=== PATIENT | male | born 1945 | race Two or more races ===

== ENCOUNTER 2016-10-26 18:32 | Inpatient (IN) | payer MEDICARE, OTHER ==
[~2016-10-26] VITALS: Ht 162.6 cm; Wt 78.0 kg
[2016-10-26 18:57] LABS: BASOPHILS % (AUTO) 0.3 % (0.0-2.0); DIFF TOTAL % 100 %; EOSINOPHILS # (AUTO) 0.1 /CMM (0.0-0.7); EOSINOPHILS % (AUTO) 1.1 % (0.0-6.0); HEMATOCRIT 44 % (39-51); HEMOGLOBIN 15.1 g/dL (13.5-17.5); LYMPHOCYTES # (AUTO) 0.9 /CMM (0.8-4.8); LYMPHOCYTES % (AUTO) 11.8 % (20.0-44.0); MEAN CORPUSCULAR HEMOGLOBIN 32 PG (26.0-33.0); MEAN CORPUSCULAR HGB CONC 34 g/dl (31.0-36.0); MEAN CORPUSCULAR VOLUME 92 fL (80-96); MONOCYTES # (AUTO) 0.5 /CMM (0.1-1.30); MONOCYTES % (AUTO) 6.6 % (2.0-12.0); NEUTROPHILS # (AUTO) 6.1 /CMM (1.8-8.9); NEUTROPHILS % (AUTO) 80.2 % (43.0-81.0); PLATELET COUNT (AUTO) 166 /CMM (150-450); WHITE BLOOD COUNT (AUTO) 7.6 K/uL (4.3-11.0)
[2016-10-26] MEDS ORDERED: ASPI81TA2 PO (19:03)
[2016-10-26] MEDS ORDERED: MAG30ORA PO (19:03)
[2016-10-26] MEDS ORDERED: MONT10TA22 PO (19:03)
[2016-10-26] MEDS ORDERED: ATOR40TA PO (19:03)
[2016-10-26] MEDS ORDERED: ACET-868 PO (19:03)
[2016-10-26] MEDS ORDERED: DONE5TAB34 PO (19:03)
[2016-10-26] MEDS ORDERED: QUET25TA PO (19:03)
[2016-10-26] MEDS ORDERED: INSU100V27 SQ (19:03)
[2016-10-26] MEDS ORDERED: MEMA28CA PO (19:03)
[2016-10-26] MEDS ORDERED: APIX5TAB PO (19:03)
[2016-10-26] MEDS ORDERED: BLOO-697 IN (19:03)
[2016-10-26 19:13] LABS: ALANINE AMINOTRANSFERASE 17 U/L (12-78); ANION GAP 12 (5-14); ASPARTATE AMINOTRANSFERASE 11 U/L (15-37); BILIRUBIN,DIRECT 0.1 mg/dL (0.0-0.2); BILIRUBIN,TOTAL 0.3 mg/dL (0.2-1.0); CALCIUM, SERUM 8.7 mg/dL (8.5-10.1); CARBON DIOXIDE 30 mmol/L (21-32); CHLORIDE 101 mmol/L (98-107); CREATININE 1.1 mg/dL (0.6-1.3); GFR 66 mL/min (>60); INDIRECT BILIRUBIN 0.2 mg/dL (0.0-1.1); POTASSIUM 4.1 mmol/L (3.5-5.1); SODIUM SERUM 139 mmol/L (136-145); TOTAL PROTEIN, SERUM 6.6 g/dL (6.4-8.2); UREA NITROGEN, BLOOD 19 mg/dL (7-18)
[2016-10-26 19:15] LABS: ACETAMINOPHEN 0 ug/ml (10-30); GLUCOSE 412 mg/dL (74-106); SALICYLATE 1.4 mg/dL (2.8-20.0)
[2016-10-26] MEDS ORDERED: IV SET PRIMARY 1 EA INFUS.SET MC ONE (20:04)
[2016-10-26] MEDS ORDERED: IV NS 0.9% 500 ML IV ONE (20:04)
[2016-10-26] MEDS ORDERED: INSULIN REGULAR, HUMAN 100 UNIT/ML 10 ML VIAL ONE (20:04)
[2016-10-26] MEDS ORDERED: IV NS 0.9% 500 ML BAG IV ONE (20:30)
[2016-10-26] MEDS ORDERED: INSULIN REGULAR, HUMAN 100 UNIT/ML 10 ML VIAL IV ONE (20:30)
[2016-10-26] MEDS ORDERED: DEXTROSE 50%-WATER 50 ML DISP.SYRIN IV PRN (21:30)
[2016-10-26] MEDS: BLOOD SUGAR DIAGNOSTIC 1 EACH STRIP IN SCH (22:00)
[2016-10-26] MEDS ORDERED: MAGNESIUM HYDROXIDE 30 ML UDC PO PRN (23:30)
[2016-10-26] MEDS ORDERED: MAG HYDROX/AL HYDROX/SIMETH 30 ML UDC PO PRN (23:30)
[2016-10-26] MEDS ORDERED: ACETAMINOPHEN 325 MG TABLET PO PRN (23:30)
[2016-10-27] MEDS ORDERED: DONEPEZIL 5 MG TABLET ONE (00:56)
[2016-10-27] MEDS ORDERED: INSULIN REGULAR, HUMAN 100 UNIT/ML 10 ML VIAL ONE (00:59)
[2016-10-27] MEDS: DONEPEZIL 5 MG TABLET PO SCH ×2 (01:06→21:51)
[2016-10-27] MEDS: *INSULIN REGULAR(HUMULIN R)HUM 100 UNIT/ML VIAL SQ PRN ×2 (01:19→22:39)
[2016-10-27 03:40] VITALS: BP 125/81
[2016-10-27] MEDS: BLOOD SUGAR DIAGNOSTIC 1 EACH STRIP IN SCH ×4 (07:30→22:34)
[2016-10-27 08:00] VITALS: BP 145/76
[2016-10-27] MEDS: ASPIRIN 81 MG TAB.CHEW PO SCH (08:56)
[2016-10-27] MEDS: ATORVASTATIN 40 MG TABLET PO SCH (08:56)
[2016-10-27] MEDS: MONTELUKAST SODIUM (10MG) 10 MG TABLET PO SCH (08:56)
[2016-10-27] MEDS: LORAZEPAM 0.5 MG TABLET PO PRN (08:59)
[2016-10-27] MEDS: APIXABAN 5 MG TABLET PO SCH ×2 (09:00→17:09)
[2016-10-27] MEDS ORDERED: Z GUARD REMEDY 2 OZ OINT TP PRN (09:00)
[2016-10-27] MEDS: Z GUARD REMEDY 2 OZ OINT TP SCH (09:00)
[2016-10-27] MEDS: INSULIN ASPART NOVOLOG 100 UNIT/ML CARTRIDGE SQ SCH ×3 (09:03→17:28)
[2016-10-27] MEDS: INSULIN REGULAR, HUMAN 100 UNIT/ML 3 ML VIAL SQ PRN (12:00)
[2016-10-27 12:55] LABS: BASOPHILS % (AUTO) 0.2 % (0.0-2.0); DIFF TOTAL % 100 %; EOSINOPHILS % (AUTO) 0.2 % (0.0-6.0); HEMATOCRIT 41 % (39-51); HEMOGLOBIN 14.3 g/dL (13.5-17.5); LYMPHOCYTES # (AUTO) 0.7 /CMM (0.8-4.8); LYMPHOCYTES % (AUTO) 9.7 % (20.0-44.0); MEAN CORPUSCULAR HEMOGLOBIN 32 PG (26.0-33.0); MEAN CORPUSCULAR HGB CONC 35 g/dl (31.0-36.0); MEAN CORPUSCULAR VOLUME 91 fL (80-96); MONOCYTES # (AUTO) 0.5 /CMM (0.1-1.30); MONOCYTES % (AUTO) 6.4 % (2.0-12.0); NEUTROPHILS % (AUTO) 83.5 % (43.0-81.0); PLATELET COUNT (AUTO) 159 /CMM (150-450); RED BLOOD CELL COUNT(AUTO) 4.49 MIL/uL (4.5-6.0); WHITE BLOOD COUNT (AUTO) 7.2 K/uL (4.3-11.0)
[2016-10-27 12:56] LABS: ALBUMIN 3.1 g/dL (3.4-5.0); BILIRUBIN,TOTAL 0.5 mg/dL (0.2-1.0); CALCIUM, SERUM 8.8 mg/dL (8.5-10.1); PHOSPHORUS 3.6 mg/dL (2.5-4.9); POTASSIUM 4.7 mmol/L (3.5-5.1); TOTAL PROTEIN, SERUM 6.6 g/dL (6.4-8.2)
[2016-10-27] MEDS: NICOTINE PATCH (7MG) 7 MG PATCH.TD24 TD SCH (14:02)
[2016-10-27 16:00] VITALS: BP 129/59
[2016-10-27] MEDS: DIVALPROEX SODIUM 250 MG TABLET.DR PO SCH (17:08)
[2016-10-27 20:00] VITALS: BP 145/92
[2016-10-27] MEDS: QUETIAPINE FUMARATE 25 MG TABLET PO SCH (21:52)
[2016-10-27] MEDS ORDERED: TEMAZEPAM 7.5 MG CAPSULE PO PRN (22:00)
[2016-10-28] MEDS: *INSULIN REGULAR(HUMULIN R)HUM 100 UNIT/ML VIAL SQ PRN ×2 (00:28→21:15)
[2016-10-28] MEDS ORDERED: MISCELLANEOUS MED 1 EA EA XX ONE (00:30)
[2016-10-28] MEDS: BLOOD SUGAR DIAGNOSTIC 1 EACH STRIP IN SCH ×4 (07:35→21:43)
[2016-10-28] MEDS: INSULIN REGULAR, HUMAN 100 UNIT/ML 3 ML VIAL SQ PRN ×2 (07:38→11:43)
[2016-10-28] MEDS: INSULIN ASPART NOVOLOG 100 UNIT/ML CARTRIDGE SQ SCH ×3 (07:39→17:03)
[2016-10-28 08:00] VITALS: BP 137/85
[2016-10-28] MEDS: ASPIRIN 81 MG TAB.CHEW PO SCH (08:28)
[2016-10-28] MEDS: APIXABAN 5 MG TABLET PO SCH ×2 (08:28→16:21)
[2016-10-28] MEDS: NICOTINE PATCH (7MG) 7 MG PATCH.TD24 TD SCH (08:28)
[2016-10-28] MEDS: MONTELUKAST SODIUM (10MG) 10 MG TABLET PO SCH (08:28)
[2016-10-28] MEDS: QUETIAPINE FUMARATE 25 MG TABLET PO SCH ×2 (08:28→21:22)
[2016-10-28] MEDS: ATORVASTATIN 40 MG TABLET PO SCH (08:28)
[2016-10-28] MEDS: DIVALPROEX SODIUM 250 MG TABLET.DR PO SCH ×2 (08:28→16:20)
[2016-10-28] MEDS: Z GUARD REMEDY 2 OZ OINT TP SCH (08:29)
[2016-10-28] MEDS: LORAZEPAM 0.5 MG TABLET PO PRN ×2 (16:20→21:23)
[2016-10-28] MEDS: ACETAMINOPHEN 325 MG TABLET PO PRN ×2 (16:20→23:10)
[2016-10-28 20:00] VITALS: BP 137/79
[2016-10-28] MEDS: INSULIN DETEMIR 100 UNIT/ML CARTRIDGE SQ SCH (21:18)
[2016-10-28] MEDS: DONEPEZIL 5 MG TABLET PO SCH (21:21)
[2016-10-28] MEDS ORDERED: INSULIN REGULAR, HUMAN 100 UNIT/ML 10 ML VIAL SQ ONE (21:30)
[2016-10-28 21:37] LABS: BASOPHILS % (AUTO) 0.3 % (0.0-2.0); DIFF TOTAL % 100 %; EOSINOPHILS # (AUTO) 0.1 /CMM (0.0-0.7); EOSINOPHILS % (AUTO) 1.7 % (0.0-6.0); HEMATOCRIT 42 % (39-51); LYMPHOCYTES # (AUTO) 0.9 /CMM (0.8-4.8); LYMPHOCYTES % (AUTO) 14.7 % (20.0-44.0); MEAN CORPUSCULAR HEMOGLOBIN 31 PG (26.0-33.0); MEAN CORPUSCULAR HGB CONC 34 g/dl (31.0-36.0); MEAN CORPUSCULAR VOLUME 93 fL (80-96); MONOCYTES # (AUTO) 0.5 /CMM (0.1-1.30); NEUTROPHILS # (AUTO) 4.9 /CMM (1.8-8.9); NEUTROPHILS % (AUTO) 76.3 % (43.0-81.0); PLATELET COUNT (AUTO) 201 /CMM (150-450); RED BLOOD CELL COUNT(AUTO) 4.47 MIL/uL (4.5-6.0); WHITE BLOOD COUNT (AUTO) 6.4 K/uL (4.3-11.0)
[2016-10-28 21:51] LABS: CALCIUM, SERUM 8.7 mg/dL (8.5-10.1); CREATININE 1.1 mg/dL (0.6-1.3); PHOSPHORUS 4.1 mg/dL (2.5-4.9); POTASSIUM 5.1 mmol/L (3.5-5.1)
[2016-10-28] MEDS ORDERED: INSULIN DETEMIR 100 UNIT/ML CARTRIDGE SQ SCH (22:00)
[2016-10-29] MEDS ORDERED: MAGNESIUM OXIDE 400 MG TABLET ONE (01:08)
[2016-10-29] MEDS ORDERED: INSULIN REGULAR, HUMAN 100 UNIT/ML 10 ML VIAL SQ ONE (01:30)
[2016-10-29] MEDS ORDERED: MAGNESIUM OXIDE 400 MG TABLET PO ONE (01:30)
[2016-10-29] MEDS: INSULIN ASPART NOVOLOG 100 UNIT/ML CARTRIDGE SQ SCH ×3 (07:30→17:22)
[2016-10-29] MEDS: BLOOD SUGAR DIAGNOSTIC 1 EACH STRIP IN SCH ×4 (07:30→21:55)
[2016-10-29] MEDS: NICOTINE PATCH (7MG) 7 MG PATCH.TD24 TD SCH (09:00)
[2016-10-29] MEDS: APIXABAN 5 MG TABLET PO SCH ×2 (09:00→17:12)
[2016-10-29] MEDS: MONTELUKAST SODIUM (10MG) 10 MG TABLET PO SCH (09:00)
[2016-10-29] MEDS: ASPIRIN 81 MG TAB.CHEW PO SCH (09:00)
[2016-10-29] MEDS: ATORVASTATIN 40 MG TABLET PO SCH (09:00)
[2016-10-29] MEDS: MAGNESIUM OXIDE 400 MG TABLET PO SCH ×2 (09:00→17:13)
[2016-10-29] MEDS: QUETIAPINE FUMARATE 25 MG TABLET PO SCH ×2 (09:00→21:55)
[2016-10-29] MEDS: Z GUARD REMEDY 2 OZ OINT TP SCH (09:00)
[2016-10-29] MEDS: DIVALPROEX SODIUM 250 MG TABLET.DR PO SCH ×2 (09:00→17:12)
[2016-10-29 16:00] VITALS: BP 142/70
[2016-10-29 19:56] VITALS: BP 142/91
[2016-10-29] MEDS: ACETAMINOPHEN 325 MG TABLET PO PRN (20:04)
[2016-10-29] MEDS: INSULIN REGULAR, HUMAN 100 UNIT/ML 3 ML VIAL SQ PRN (21:40)
[2016-10-29] MEDS: INSULIN DETEMIR 100 UNIT/ML CARTRIDGE SQ SCH (21:42)
[2016-10-29] MEDS: DONEPEZIL 5 MG TABLET PO SCH (21:55)
[2016-10-30 08:00] VITALS: BP 131/73
[2016-10-30] MEDS: BLOOD SUGAR DIAGNOSTIC 1 EACH STRIP IN SCH ×4 (08:33→21:22)
[2016-10-30] MEDS: MAGNESIUM OXIDE 400 MG TABLET PO SCH ×2 (08:34→17:00)
[2016-10-30] MEDS: ATORVASTATIN 40 MG TABLET PO SCH (08:34)
[2016-10-30] MEDS: MONTELUKAST SODIUM (10MG) 10 MG TABLET PO SCH (08:34)
[2016-10-30] MEDS: APIXABAN 5 MG TABLET PO SCH ×2 (08:34→17:00)
[2016-10-30] MEDS: ASPIRIN 81 MG TAB.CHEW PO SCH (08:34)
[2016-10-30] MEDS: QUETIAPINE FUMARATE 25 MG TABLET PO SCH ×2 (08:34→20:32)
[2016-10-30] MEDS: DIVALPROEX SODIUM 250 MG TABLET.DR PO SCH ×2 (08:34→17:00)
[2016-10-30] MEDS: NICOTINE PATCH (7MG) 7 MG PATCH.TD24 TD SCH (08:35)
[2016-10-30] MEDS: INSULIN ASPART NOVOLOG 100 UNIT/ML CARTRIDGE SQ SCH ×3 (08:40→17:19)
[2016-10-30] MEDS: INSULIN REGULAR, HUMAN 100 UNIT/ML 3 ML VIAL SQ PRN (08:40)
[2016-10-30] MEDS: Z GUARD REMEDY 2 OZ OINT TP SCH (09:00)
[2016-10-30] MEDS: NEOMY SULF/BACITRAC ZN/POLY 15 GM TUBE TP SCH (10:32)
[2016-10-30 16:00] VITALS: BP 128/78
[2016-10-30 20:24] VITALS: BP 137/82
[2016-10-30] MEDS: ACETAMINOPHEN 325 MG TABLET PO PRN (20:32)
[2016-10-30] MEDS: DONEPEZIL 5 MG TABLET PO SCH (21:22)
[2016-10-30] MEDS: INSULIN DETEMIR 100 UNIT/ML CARTRIDGE SQ SCH (21:22)
[2016-10-31] MEDS: BLOOD SUGAR DIAGNOSTIC 1 EACH STRIP IN SCH (07:30)
[2016-10-31 08:00] VITALS: BP 138/69
[2016-10-31] MEDS: NICOTINE PATCH (7MG) 7 MG PATCH.TD24 TD SCH (08:46)
[2016-10-31] MEDS: ASPIRIN 81 MG TAB.CHEW PO SCH (08:46)
[2016-10-31] MEDS: MAGNESIUM OXIDE 400 MG TABLET PO SCH (08:46)
[2016-10-31] MEDS: DIVALPROEX SODIUM 250 MG TABLET.DR PO SCH (08:47)
[2016-10-31] MEDS: QUETIAPINE FUMARATE 25 MG TABLET PO SCH (08:47)
[2016-10-31] MEDS: ATORVASTATIN 40 MG TABLET PO SCH (08:47)
[2016-10-31] MEDS: MONTELUKAST SODIUM (10MG) 10 MG TABLET PO SCH (08:47)
[2016-10-31] MEDS: APIXABAN 5 MG TABLET PO SCH (08:48)
[2016-10-31] MEDS: INSULIN REGULAR, HUMAN 100 UNIT/ML 3 ML VIAL SQ PRN (09:14)
[2016-10-31] MEDS: INSULIN ASPART NOVOLOG 100 UNIT/ML CARTRIDGE SQ SCH (09:16)
[2016-10-31 10:12] LABS: CALCIUM, SERUM 9.4 mg/dL (8.5-10.1); CREATININE 1.1 mg/dL (0.6-1.3); POTASSIUM 4.3 mmol/L (3.5-5.1)
[2016-10-31] MEDS: NEOMY SULF/BACITRAC ZN/POLY 15 GM TUBE TP SCH (10:33)
[2016-10-31] MEDS: Z GUARD REMEDY 2 OZ OINT TP SCH (10:36)
[2016-10-31] MEDS ORDERED: INSULIN REGULAR, HUMAN 100 UNIT/ML 3 ML VIAL IV ONE (11:00)
[2016-10-31] MEDS ORDERED: IV NS 0.9% 1,000 ML BAG IV PRN (11:00)
[2016-10-31] MEDS: LORAZEPAM 0.5 MG TABLET PO PRN (11:14)
== END 2016-10-31 11:45 | disposition short-term general hospital (02) | DRG 885 ==
LOC: ER 18:34 → GPS 21:01
PROVIDERS: ADMIT Psychiatry & Neurology Psychiatry; ATTEND Nurse Practitioner Acute Care
DX: F29 Unspecified psychosis not due to a substance or known physiological condition (principal); F10.231 Alcohol dependence with withdrawal delirium; F03.91 Unspecified dementia, unspecified severity, with behavioral disturbance; I50.32 Chronic diastolic (congestive) heart failure; Z95.5 Presence of coronary angioplasty implant and graft; I25.10 Atherosclerotic heart disease of native coronary artery without angina pectoris; I10 Essential (primary) hypertension; E78.5 Hyperlipidemia, unspecified; Z86.718 Personal history of other venous thrombosis and embolism; F32.9 Major depressive disorder, single episode, unspecified; F41.9 Anxiety disorder, unspecified; G89.29 Other chronic pain
CPT/HCPCS: 36415; 80048-TC; 80053-TC; 80061-TC; 80076-TC; 82962-TC; 83735-TC; 84100-TC; 85025-TC; 87081-TC; A4606; G0480; G6039-TC; J1815; J7040; Z7610

== ENCOUNTER 2016-10-31 11:55 | Inpatient (IN) | payer MEDICARE, OTHER ==
[2016-10-31] VITALS (10 sets, daily range): BP systolic 46–158; BP diastolic 16–109
[~2016-10-31] VITALS: Ht 162.6 cm; Wt 78.0 kg
[~2016-10-31 11:55] MED LIST: ACET-868 PO; APIX5TAB PO; ASPI81TA2 PO; ATOR40TA PO; BLOO-697 IN; DONE5TAB34 PO; INSU100V27 SQ; MAG30ORA PO; MEMA28CA PO; MONT10TA22 PO
[2016-10-31] MEDS ORDERED: IV NS 0.9% 1,000 ML ONE (12:05)
[2016-10-31] MEDS ORDERED: IV SET PRIMARY PUMP SET 1 EA INFUS.SET MC ONE (12:05)
[2016-10-31] MEDS ORDERED: MAGNESIUM HYDROXIDE 30 ML UDC PO PRN (12:30)
[2016-10-31] MEDS ORDERED: INSULIN REGULAR, HUMAN 100 UNIT in IV NS 0.9% 99 ML IV PRN ×2 (12:30)
[2016-10-31] MEDS ORDERED: ACETAMINOPHEN 325 MG TABLET PO PRN ×2 (12:30→14:00)
[2016-10-31] MEDS ORDERED: MAG HYDROX/AL HYDROX/SIMETH 30 ML UDC PO PRN ×2 (12:30→14:00)
[2016-10-31] MEDS ORDERED: ONDANSETRON HCL/PF 4 MG/2 ML VIAL IVP PRN (12:30)
[2016-10-31] MEDS ORDERED: INSULIN REGULAR, HUMAN 100 UNIT/ML 3 ML VIAL IV ONE (12:30)
[2016-10-31] MEDS ORDERED: IV NS 0.9% 1,000 ML IV PRN (12:30)
[2016-10-31 13:08] LABS: CALCIUM, SERUM 9.2 mg/dL (8.5-10.1); CREATININE 1.1 mg/dL (0.6-1.3); POTASSIUM 3.9 mmol/L (3.5-5.1)
[2016-10-31] MEDS ORDERED: *INSULIN REGULAR(HUMULIN R)HUM 100 UNIT/ML VIAL SQ PRN (14:00)
[2016-10-31] MEDS ORDERED: DEXTROSE 50%-WATER 50 ML DISP.SYRIN IV PRN (14:00)
[2016-10-31] MEDS: DIVALPROEX SODIUM 250 MG TABLET.DR PO SCH ×2 (15:00→21:42)
[2016-10-31] MEDS: QUETIAPINE FUMARATE 25 MG TABLET PO SCH ×2 (15:00→16:36)
[2016-10-31] MEDS: BLOOD SUGAR DIAGNOSTIC 1 EACH STRIP IN SCH ×2 (16:34→21:43)
[2016-10-31] MEDS: MEMANTINE HCL 5 MG TABLET PO SCH (16:36)
[2016-10-31] MEDS: INSULIN REGULAR, HUMAN 100 UNIT/ML 3 ML VIAL SQ PRN (16:37)
[2016-10-31] MEDS: APIXABAN 5 MG TABLET PO SCH (16:37)
[2016-10-31] MEDS: HYDROCODONE/APAP 5/325MG 1 EACH TABLET PO PRN (19:03)
[2016-10-31] MEDS ORDERED: DONEPEZIL 5 MG TABLET PO SCH (22:00)
[2016-10-31] MEDS ORDERED: INSULIN DETEMIR 100 UNIT/ML CARTRIDGE SQ SCH (22:00)
[2016-10-31] MEDS ORDERED: ZOLPIDEM TARTRATE 5 MG TABLET PO PRN (22:00)
[2016-11-01] MEDS: INSULIN REGULAR, HUMAN 100 UNIT/ML 3 ML VIAL SQ PRN ×2 (05:45→11:52)
[2016-11-01] MEDS: BLOOD SUGAR DIAGNOSTIC 1 EACH STRIP IN SCH ×3 (05:45→16:48)
[2016-11-01 07:21] LABS: BASOPHILS % (AUTO) 0.6 % (0.0-2.0); DIFF TOTAL % 100 %; EOSINOPHILS # (AUTO) 0.2 /CMM (0.0-0.7); EOSINOPHILS % (AUTO) 2.9 % (0.0-6.0); HEMATOCRIT 41 % (39-51); HEMOGLOBIN 14.3 g/dL (13.5-17.5); LYMPHOCYTES # (AUTO) 1.2 /CMM (0.8-4.8); LYMPHOCYTES % (AUTO) 21.9 % (20.0-44.0); MEAN CORPUSCULAR HEMOGLOBIN 32 PG (26.0-33.0); MEAN CORPUSCULAR HGB CONC 35 g/dl (31.0-36.0); MEAN CORPUSCULAR VOLUME 92 fL (80-96); MONOCYTES # (AUTO) 0.6 /CMM (0.1-1.30); MONOCYTES % (AUTO) 10.9 % (2.0-12.0); NEUTROPHILS # (AUTO) 3.6 /CMM (1.8-8.9); NEUTROPHILS % (AUTO) 63.7 % (43.0-81.0); PLATELET COUNT (AUTO) 212 /CMM (150-450); RED BLOOD CELL COUNT(AUTO) 4.51 MIL/uL (4.5-6.0); WHITE BLOOD COUNT (AUTO) 5.6 K/uL (4.3-11.0)
[2016-11-01] MEDS ORDERED: PANTOPRAZOLE 40 MG TABLET.DR PO SCH (07:30)
[2016-11-01 07:49] LABS: CALCIUM, SERUM 8.9 mg/dL (8.5-10.1); CREATININE 0.7 mg/dL (0.6-1.3); PHOSPHORUS 3.5 mg/dL (2.5-4.9); POTASSIUM 3.9 mmol/L (3.5-5.1)
[2016-11-01 08:00] VITALS: BP 127/75
[2016-11-01] MEDS: DIVALPROEX SODIUM 250 MG TABLET.DR PO SCH (08:08)
[2016-11-01] MEDS: QUETIAPINE FUMARATE 25 MG TABLET PO SCH ×2 (08:08→16:48)
[2016-11-01] MEDS: MEMANTINE HCL 5 MG TABLET PO SCH ×2 (08:09→16:48)
[2016-11-01] MEDS: APIXABAN 5 MG TABLET PO SCH ×2 (08:37→16:48)
[2016-11-01] MEDS ORDERED: ATORVASTATIN 40 MG TABLET PO SCH (09:00)
[2016-11-01] MEDS ORDERED: MONTELUKAST SODIUM (10MG) 10 MG TABLET PO SCH (09:00)
[2016-11-01] MEDS ORDERED: ASPIRIN 81 MG TAB.CHEW PO SCH (09:00)
[2016-11-01] MEDS: HYDROCODONE/APAP 5/325MG 1 EACH TABLET PO PRN (13:58)
[2016-11-01 16:00] VITALS: BP 137/82
[2016-11-02] MEDS ORDERED: INSU100V10 SQ (07:29)
== END 2016-11-01 18:00 | DRG 637 ==
LOC: ICU 11:55 → MEDSG2 18:33
PROVIDERS: ADMIT Internal Medicine; ATTEND Internal Medicine
DX: E13.10 Other specified diabetes mellitus with ketoacidosis without coma (principal); G93.41 Metabolic encephalopathy; F03.91 Unspecified dementia, unspecified severity, with behavioral disturbance; I50.32 Chronic diastolic (congestive) heart failure; Z91.14 Patient's other noncompliance with medication regimen; E78.5 Hyperlipidemia, unspecified; Z86.718 Personal history of other venous thrombosis and embolism; I25.10 Atherosclerotic heart disease of native coronary artery without angina pectoris; F29 Unspecified psychosis not due to a substance or known physiological condition; Z98.61 Coronary angioplasty status; I11.0 Hypertensive heart disease with heart failure
CPT/HCPCS: 36415; 80048-TC; 82962-TC; 83735-TC; 84100-TC; 85025-TC; J1815; J7030

== ENCOUNTER 2016-11-01 18:46 | Inpatient (IN) | payer MEDICARE, OTHER ==
[~2016-11-01] VITALS: Ht 165.1 cm; Wt 83.9 kg
[2016-11-01 20:29] VITALS: BP 143/86
[2016-11-01] MEDS ORDERED: MAGNESIUM HYDROXIDE 30 ML UDC PO PRN (20:30)
[2016-11-01] MEDS ORDERED: MAG HYDROX/AL HYDROX/SIMETH 30 ML UDC PO PRN (20:30)
[2016-11-01] MEDS ORDERED: LORAZEPAM 0.5 MG TABLET PO PRN (20:30)
[2016-11-01] MEDS ORDERED: INSULIN REGULAR, HUMAN 100 UNIT/ML 3 ML VIAL SQ PRN (21:30)
[2016-11-01] MEDS ORDERED: DEXTROSE 50%-WATER 50 ML DISP.SYRIN IV PRN (21:30)
[2016-11-01] MEDS ORDERED: BLOOD SUGAR DIAGNOSTIC 1 EACH STRIP IN SCH (22:00)
[2016-11-01] MEDS: DONEPEZIL 5 MG TABLET PO SCH (22:28)
[2016-11-01] MEDS: TEMAZEPAM 7.5 MG CAPSULE PO PRN (22:28)
[2016-11-02] MEDS ORDERED: INSU100V10 SQ (07:29)
[2016-11-02] MEDS ORDERED: DEXTROSE 50%-WATER 50 ML DISP.SYRIN IV PRN ×3 (07:30→11:00)
[2016-11-02] MEDS ORDERED: BLOOD SUGAR DIAGNOSTIC 1 EACH STRIP IN SCH ×2 (07:30→12:00)
[2016-11-02] MEDS ORDERED: *INSULIN REGULAR(HUMULIN R)HUM 100 UNIT/ML VIAL SQ PRN ×2 (07:30→11:00)
[2016-11-02] MEDS ORDERED: INSULIN REGULAR, HUMAN 100 UNIT/ML 3 ML VIAL SQ PRN ×2 (07:30→11:00)
[2016-11-02 07:47] LABS: BASOPHILS % (AUTO) 0.6 % (0.0-2.0); DIFF TOTAL % 100 %; EOSINOPHILS # (AUTO) 0.1 /CMM (0.0-0.7); EOSINOPHILS % (AUTO) 2.4 % (0.0-6.0); HEMATOCRIT 41 % (39-51); HEMOGLOBIN 14.1 g/dL (13.5-17.5); LYMPHOCYTES % (AUTO) 19.2 % (20.0-44.0); MEAN CORPUSCULAR HEMOGLOBIN 32 PG (26.0-33.0); MEAN CORPUSCULAR HGB CONC 35 g/dl (31.0-36.0); MEAN CORPUSCULAR VOLUME 91 fL (80-96); MONOCYTES # (AUTO) 0.6 /CMM (0.1-1.30); MONOCYTES % (AUTO) 10.9 % (2.0-12.0); NEUTROPHILS # (AUTO) 3.6 /CMM (1.8-8.9); NEUTROPHILS % (AUTO) 66.9 % (43.0-81.0); PLATELET COUNT (AUTO) 213 /CMM (150-450); RED BLOOD CELL COUNT(AUTO) 4.46 MIL/uL (4.5-6.0); WHITE BLOOD COUNT (AUTO) 5.4 K/uL (4.3-11.0)
[2016-11-02 08:00] VITALS: BP 132/76
[2016-11-02 08:10] LABS: CALCIUM, SERUM 8.6 mg/dL (8.5-10.1); CREATININE 0.8 mg/dL (0.6-1.3)
[2016-11-02] MEDS: DONEPEZIL 5 MG TABLET PO SCH ×2 (08:19→21:37)
[2016-11-02] MEDS: ATORVASTATIN 40 MG TABLET PO SCH (09:00)
[2016-11-02] MEDS: ASPIRIN 81 MG TAB.CHEW PO SCH (09:00)
[2016-11-02] MEDS: MONTELUKAST SODIUM (10MG) 10 MG TABLET PO SCH (09:00)
[2016-11-02] MEDS: APIXABAN 5 MG TABLET PO SCH ×2 (09:00→16:47)
[2016-11-02] MEDS: MEMANTINE HCL 5 MG TABLET PO SCH ×2 (09:00→16:47)
[2016-11-02] MEDS: ACETAMINOPHEN 325 MG TABLET PO PRN (11:52)
[2016-11-02] MEDS: BLOOD SUGAR DIAGNOSTIC 1 EACH STRIP IN SCH ×2 (11:59→17:39)
[2016-11-02] MEDS: INSULIN REGULAR, HUMAN 100 UNIT/ML 3 ML VIAL SQ PRN ×3 (12:32→21:40)
[2016-11-02] MEDS ORDERED: QUETIAPINE FUMARATE 25 MG TABLET PO SCH (14:30)
[2016-11-02] MEDS ORDERED: DIVALPROEX SODIUM 250 MG TABLET.DR PO SCH (14:30)
[2016-11-02 16:00] VITALS: BP 112/68
[2016-11-02] MEDS: DIVALPROEX SODIUM 250 MG TABLET.DR PO SCH (16:47)
[2016-11-02] MEDS: QUETIAPINE FUMARATE 25 MG TABLET PO SCH (16:48)
[2016-11-02 20:00] VITALS: BP 124/69
[2016-11-02] MEDS: ZINC OXIDE 30 GM TUBE TP SCH (21:36)
[2016-11-02] MEDS: INSULIN DETEMIR 100 UNIT/ML CARTRIDGE SQ SCH (21:39)
[2016-11-03] MEDS: BLOOD SUGAR DIAGNOSTIC 1 EACH STRIP IN SCH ×5 (01:22→23:27)
[2016-11-03] MEDS: ACETAMINOPHEN 325 MG TABLET PO PRN ×3 (06:02→23:18)
[2016-11-03 08:00] VITALS: BP 118/67
[2016-11-03] MEDS: DIVALPROEX SODIUM 250 MG TABLET.DR PO SCH ×3 (08:40→17:21)
[2016-11-03] MEDS: QUETIAPINE FUMARATE 25 MG TABLET PO SCH ×2 (08:40→17:21)
[2016-11-03] MEDS: MONTELUKAST SODIUM (10MG) 10 MG TABLET PO SCH (08:41)
[2016-11-03] MEDS: ATORVASTATIN 40 MG TABLET PO SCH (08:41)
[2016-11-03] MEDS: ASPIRIN 81 MG TAB.CHEW PO SCH (08:41)
[2016-11-03] MEDS: MEMANTINE HCL 5 MG TABLET PO SCH ×2 (08:41→17:21)
[2016-11-03] MEDS: APIXABAN 5 MG TABLET PO SCH ×2 (08:42→17:22)
[2016-11-03] MEDS: ZINC OXIDE 30 GM TUBE TP SCH ×2 (08:53→20:09)
[2016-11-03] MEDS: INSULIN REGULAR, HUMAN 100 UNIT/ML 3 ML VIAL SQ PRN ×2 (12:03→23:30)
[2016-11-03 16:00] VITALS: BP 146/69
[2016-11-03 20:00] VITALS: BP 127/62
[2016-11-03] MEDS: DONEPEZIL 5 MG TABLET PO SCH (21:04)
[2016-11-03] MEDS: INSULIN DETEMIR 100 UNIT/ML CARTRIDGE SQ SCH (21:56)
[2016-11-03] MEDS: TEMAZEPAM 7.5 MG CAPSULE PO PRN (21:58)
[2016-11-04] MEDS: BLOOD SUGAR DIAGNOSTIC 1 EACH STRIP IN SCH ×4 (06:09→23:30)
[2016-11-04 08:00] VITALS: BP 164/77
[2016-11-04] MEDS: DIVALPROEX SODIUM 250 MG TABLET.DR PO SCH ×2 (08:59→17:03)
[2016-11-04] MEDS: QUETIAPINE FUMARATE 25 MG TABLET PO SCH ×2 (08:59→17:03)
[2016-11-04] MEDS: ATORVASTATIN 40 MG TABLET PO SCH (09:00)
[2016-11-04] MEDS: MEMANTINE HCL 5 MG TABLET PO SCH ×2 (09:00→17:03)
[2016-11-04] MEDS: MONTELUKAST SODIUM (10MG) 10 MG TABLET PO SCH (09:00)
[2016-11-04] MEDS: ASPIRIN 81 MG TAB.CHEW PO SCH (09:01)
[2016-11-04] MEDS: ZINC OXIDE 30 GM TUBE TP SCH ×2 (09:01→20:42)
[2016-11-04] MEDS: APIXABAN 5 MG TABLET PO SCH ×2 (09:10→17:04)
[2016-11-04] MEDS: INSULIN REGULAR, HUMAN 100 UNIT/ML 3 ML VIAL SQ PRN ×3 (12:14→23:33)
[2016-11-04 16:00] VITALS: BP 135/77
[2016-11-04 20:00] VITALS: BP 114/76
[2016-11-04] MEDS: DONEPEZIL 5 MG TABLET PO SCH (21:11)
[2016-11-04] MEDS: INSULIN DETEMIR 100 UNIT/ML CARTRIDGE SQ SCH (21:15)
[2016-11-05] MEDS: BLOOD SUGAR DIAGNOSTIC 1 EACH STRIP IN SCH ×3 (06:16→17:47)
[2016-11-05] MEDS: INSULIN REGULAR, HUMAN 100 UNIT/ML 3 ML VIAL SQ PRN ×3 (06:26→17:59)
[2016-11-05 08:10] VITALS: BP 139/77
[2016-11-05] MEDS: MONTELUKAST SODIUM (10MG) 10 MG TABLET PO SCH (08:33)
[2016-11-05] MEDS: MEMANTINE HCL 5 MG TABLET PO SCH ×2 (08:33→16:40)
[2016-11-05] MEDS: QUETIAPINE FUMARATE 25 MG TABLET PO SCH ×2 (08:33→16:41)
[2016-11-05] MEDS: ASPIRIN 81 MG TAB.CHEW PO SCH (08:34)
[2016-11-05] MEDS: ATORVASTATIN 40 MG TABLET PO SCH (08:34)
[2016-11-05] MEDS: DIVALPROEX SODIUM 250 MG TABLET.DR PO SCH ×2 (08:34→16:40)
[2016-11-05] MEDS: APIXABAN 5 MG TABLET PO SCH ×2 (08:37→16:43)
[2016-11-05] MEDS: ZINC OXIDE 30 GM TUBE TP SCH ×2 (08:38→21:46)
[2016-11-05 15:59] VITALS: BP 127/79
[2016-11-05] MEDS: ACETAMINOPHEN 325 MG TABLET PO PRN (17:53)
[2016-11-05 19:50] VITALS: BP 105/62
[2016-11-05] MEDS: DONEPEZIL 5 MG TABLET PO SCH (21:43)
[2016-11-05] MEDS: INSULIN DETEMIR 100 UNIT/ML CARTRIDGE SQ SCH (21:56)
[2016-11-06] MEDS: BLOOD SUGAR DIAGNOSTIC 1 EACH STRIP IN SCH ×5 (00:24→23:57)
[2016-11-06 08:00] VITALS: BP 132/77
[2016-11-06] MEDS: ASPIRIN 81 MG TAB.CHEW PO SCH (09:00)
[2016-11-06] MEDS: MONTELUKAST SODIUM (10MG) 10 MG TABLET PO SCH (09:00)
[2016-11-06] MEDS: ZINC OXIDE 30 GM TUBE TP SCH ×2 (09:00→21:31)
[2016-11-06] MEDS: QUETIAPINE FUMARATE 25 MG TABLET PO SCH ×2 (09:00→17:00)
[2016-11-06] MEDS: APIXABAN 5 MG TABLET PO SCH ×2 (09:00→17:00)
[2016-11-06] MEDS: ATORVASTATIN 40 MG TABLET PO SCH (09:00)
[2016-11-06] MEDS: MEMANTINE HCL 5 MG TABLET PO SCH ×2 (09:00→17:00)
[2016-11-06] MEDS: DIVALPROEX SODIUM 250 MG TABLET.DR PO SCH ×2 (11:19→17:00)
[2016-11-06] MEDS: INSULIN REGULAR, HUMAN 100 UNIT/ML 3 ML VIAL SQ PRN ×2 (12:26→18:09)
[2016-11-06 16:00] VITALS: BP 115/69
[2016-11-06 19:49] VITALS: BP 118/69
[2016-11-06] MEDS: DONEPEZIL 5 MG TABLET PO SCH (21:31)
[2016-11-06] MEDS: INSULIN DETEMIR 100 UNIT/ML CARTRIDGE SQ SCH (21:37)
[2016-11-07] MEDS: BLOOD SUGAR DIAGNOSTIC 1 EACH STRIP IN SCH (06:21)
[2016-11-07 08:00] VITALS: BP 139/86
[2016-11-07 08:11] LABS: CALCIUM, SERUM 8.4 mg/dL (8.5-10.1); CREATININE 0.7 mg/dL (0.6-1.3); POTASSIUM 3.7 mmol/L (3.5-5.1)
[2016-11-07] MEDS: MEMANTINE HCL 5 MG TABLET PO SCH (08:27)
[2016-11-07] MEDS: QUETIAPINE FUMARATE 25 MG TABLET PO SCH (08:27)
[2016-11-07] MEDS: MONTELUKAST SODIUM (10MG) 10 MG TABLET PO SCH (08:27)
[2016-11-07] MEDS: DIVALPROEX SODIUM 250 MG TABLET.DR PO SCH (08:27)
[2016-11-07] MEDS: ASPIRIN 81 MG TAB.CHEW PO SCH (08:28)
[2016-11-07] MEDS: ATORVASTATIN 40 MG TABLET PO SCH (08:28)
[2016-11-07] MEDS: APIXABAN 5 MG TABLET PO SCH (08:29)
[2016-11-07] MEDS: ZINC OXIDE 30 GM TUBE TP SCH (08:29)
[2016-11-07 08:33] LABS: BASOPHILS % (AUTO) 0.7 % (0.0-2.0); DIFF TOTAL % 100 %; EOSINOPHILS # (AUTO) 0.1 /CMM (0.0-0.7); EOSINOPHILS % (AUTO) 2.9 % (0.0-6.0); HEMATOCRIT 40 % (39-51); HEMOGLOBIN 13.7 g/dL (13.5-17.5); LYMPHOCYTES % (AUTO) 22.7 % (20.0-44.0); MEAN CORPUSCULAR HEMOGLOBIN 32 PG (26.0-33.0); MEAN CORPUSCULAR HGB CONC 34 g/dl (31.0-36.0); MEAN CORPUSCULAR VOLUME 92 fL (80-96); MONOCYTES # (AUTO) 0.5 /CMM (0.1-1.30); MONOCYTES % (AUTO) 10.1 % (2.0-12.0); NEUTROPHILS # (AUTO) 2.9 /CMM (1.8-8.9); NEUTROPHILS % (AUTO) 63.6 % (43.0-81.0); PLATELET COUNT (AUTO) 211 /CMM (150-450); RED BLOOD CELL COUNT(AUTO) 4.36 MIL/uL (4.5-6.0); WHITE BLOOD COUNT (AUTO) 4.5 K/uL (4.3-11.0)
== END 2016-11-07 11:20 | DRG 885 ==
LOC: GPS 18:46
PROVIDERS: ADMIT Psychiatry & Neurology Psychiatry; ATTEND Psychiatry & Neurology Psychiatry
DX: F29 Unspecified psychosis not due to a substance or known physiological condition (principal); I11.0 Hypertensive heart disease with heart failure; E11.65 Type 2 diabetes mellitus with hyperglycemia; G93.40 Encephalopathy, unspecified; I50.32 Chronic diastolic (congestive) heart failure; F39 Unspecified mood [affective] disorder; F03.90 Unspecified dementia, unspecified severity, without behavioral disturbance, psychotic disturbance, mood disturbance, and anxiety; E78.5 Hyperlipidemia, unspecified; Z86.718 Personal history of other venous thrombosis and embolism; I25.10 Atherosclerotic heart disease of native coronary artery without angina pectoris; Z98.61 Coronary angioplasty status; L98.9 Disorder of the skin and subcutaneous tissue, unspecified; L91.0 Hypertrophic scar; R23.4 Changes in skin texture
CPT/HCPCS: 36415; 80048-TC; 80164-TC; 82962-TC; 84484-TC; 85025-TC; J1815

== ENCOUNTER 2016-11-10 19:04 | Emergency (ER) | payer MEDICARE, OTHER ==
[~2016-11-10] VITALS: Ht 167.6 cm; Wt 88.5 kg
[~2016-11-10 19:04] MED LIST changes: -BLOO-697 IN; +INSU100V10 SQ; -INSU100V27 SQ
[2016-11-10 19:40] LABS: BASOPHILS # (AUTO) 0.1 /CMM (0.0-0.2); BASOPHILS % (AUTO) 1.3 % (0.0-2.0); DIFF TOTAL % 100 %; EOSINOPHILS % (AUTO) 0.6 % (0.0-6.0); HEMATOCRIT 43 % (39-51); HEMOGLOBIN 14.3 g/dL (13.5-17.5); LYMPHOCYTES # (AUTO) 0.6 /CMM (0.8-4.8); LYMPHOCYTES % (AUTO) 7.6 % (20.0-44.0); MEAN CORPUSCULAR HEMOGLOBIN 31 PG (26.0-33.0); MEAN CORPUSCULAR HGB CONC 33 g/dl (31.0-36.0); MEAN CORPUSCULAR VOLUME 93 fL (80-96); MONOCYTES # (AUTO) 0.4 /CMM (0.1-1.30); NEUTROPHILS # (AUTO) 6.3 /CMM (1.8-8.9); NEUTROPHILS % (AUTO) 85.5 % (43.0-81.0); PLATELET COUNT (AUTO) 192 /CMM (150-450); RED BLOOD CELL COUNT(AUTO) 4.57 MIL/uL (4.5-6.0); WHITE BLOOD COUNT (AUTO) 7.4 K/uL (4.3-11.0)
[2016-11-10 19:43] LABS: ABG BASE EXCESS 4.2 mmol/L; ABG HCO3 27.4 mmol/L; ABG PCO2 36.4 mmHg (35.0-45.0); ABG PH 7.495 (7.350-7.450); ABG PO2 94.1 mmHg (75.0-100.0); ABG TOTAL HEMOGLOBIN 14.1 G/dL (13.5-18.0); ALLEN TEST Pass; O2Hb 95.4 % (94.0-97.0)
[2016-11-10 19:43] LABS: CALCIUM, SERUM 8.8 mg/dL (8.5-10.1); CREATININE 1.2 mg/dL (0.6-1.3); POTASSIUM 4.4 mmol/L (3.5-5.1)
[2016-11-10] MEDS ORDERED: IV SET PRIMARY 1 EA INFUS.SET MC ONE (20:16)
[2016-11-10] MEDS ORDERED: IV NS 0.9% 1,000 ML ONE (20:16)
[2016-11-10] MEDS ORDERED: INSULIN REGULAR, HUMAN 100 UNIT/ML 10 ML VIAL ONE (20:17)
[2016-11-10] MEDS ORDERED: INSULIN REGULAR, HUMAN 100 UNIT/ML 10 ML VIAL SQ ONE (20:30)
[2016-11-10] MEDS ORDERED: IV NS 0.9% 1,000 ML BAG IV ONE (20:30)
[2016-11-10 22:12] VITALS: BP 142/85
== END 2016-11-10 22:13 | disposition home or self-care (01) ==
LOC: ER 19:06
DX: E11.65 Type 2 diabetes mellitus with hyperglycemia (principal); I11.0 Hypertensive heart disease with heart failure; I50.9 Heart failure, unspecified; F03.90 Unspecified dementia, unspecified severity, without behavioral disturbance, psychotic disturbance, mood disturbance, and anxiety; E78.5 Hyperlipidemia, unspecified; I25.10 Atherosclerotic heart disease of native coronary artery without angina pectoris; I82.409 Acute embolism and thrombosis of unspecified deep veins of unspecified lower extremity; Z79.82 Long term (current) use of aspirin; Z79.4 Long term (current) use of insulin
CPT/HCPCS: 36415; 36600; 80048; 82010; 82962 ×3; 85025; 93005; 96360; 96372; 99285; A4606; J1815; J7030; Z7610

== ENCOUNTER 2016-11-11 00:11 | Inpatient (IN) | payer MEDICARE, OTHER ==
[~2016-11-11] VITALS: Ht 167.6 cm; Wt 88.5 kg
[2016-11-11] MEDS ORDERED: IV NS 0.9% 500 ML IV ONE (00:21)
[2016-11-11] MEDS ORDERED: IV SET PRIMARY 1 EA INFUS.SET MC ONE (00:21)
[2016-11-11] MEDS ORDERED: IV NS 0.9% 1,000 ML BAG IV ONE (00:30)
[2016-11-11] MEDS ORDERED: IV NS 0.9% 1,000 ML IV PRN (00:47)
[2016-11-11] MEDS ORDERED: Z GUARD REMEDY 2 OZ OINT TP PRN (01:00)
[2016-11-11] MEDS ORDERED: MAG HYDROX/AL HYDROX/SIMETH 30 ML UDC PO PRN ×2 (01:00)
[2016-11-11] MEDS ORDERED: MAGNESIUM HYDROXIDE 30 ML UDC PO PRN (01:00)
[2016-11-11] MEDS ORDERED: ZOLPIDEM TARTRATE 5 MG TABLET PO PRN (01:00)
[2016-11-11] MEDS ORDERED: ONDANSETRON HCL/PF 4 MG/2 ML VIAL IVP PRN (01:00)
[2016-11-11] MEDS ORDERED: ACETAMINOPHEN 325 MG TABLET PO PRN ×2 (01:00)
[2016-11-11] MEDS ORDERED: *INSULIN REGULAR(HUMULIN R)HUM 100 UNIT/ML VIAL SQ PRN (01:00)
[2016-11-11] MEDS ORDERED: HYDROCODONE/APAP 5/325MG 1 EACH TABLET PO PRN (01:00)
[2016-11-11] MEDS ORDERED: DEXTROSE 50%-WATER 50 ML DISP.SYRIN IV PRN (01:00)
[2016-11-11] MEDS ORDERED: IV SET PRIMARY PUMP SET 1 EA INFUS.SET MC ONE ×2 (02:11→11:35)
[2016-11-11 04:27] VITALS: BP 147/87
[2016-11-11] MEDS: INSULIN REGULAR, HUMAN 100 UNIT/ML 3 ML VIAL SQ PRN ×3 (05:06→17:37)
[2016-11-11] MEDS ORDERED: APIXABAN 5 MG TABLET PO SCH (09:00)
[2016-11-11] MEDS ORDERED: HALOPERIDOL DECANOATE IM 100 MG/ML AMPUL IM PRN (09:00)
[2016-11-11] MEDS: BLOOD SUGAR DIAGNOSTIC 1 EACH STRIP VI SCH ×4 (09:29→22:44)
[2016-11-11] MEDS ORDERED: HALOPERIDOL LACTATE INJ 5 MG/ML VIAL IM PRN (09:30)
[2016-11-11] MEDS: PANTOPRAZOLE 40 MG TABLET.DR PO SCH (09:59)
[2016-11-11] MEDS: MONTELUKAST SODIUM (10MG) 10 MG TABLET PO SCH (09:59)
[2016-11-11] MEDS: ATORVASTATIN 40 MG TABLET PO SCH (09:59)
[2016-11-11] MEDS: ASPIRIN 81 MG TAB.CHEW PO SCH (09:59)
[2016-11-11] MEDS: MEMANTINE HCL 5 MG TABLET PO SCH ×2 (10:04→17:35)
[2016-11-11] MEDS ORDERED: SECONDARY IV SET 1 EA INFUS.SET MC ONE (11:35)
[2016-11-11] MEDS ORDERED: IV NS 0.9% 250 ML IV ONE (11:35)
[2016-11-11] MEDS: INSULIN DETEMIR 100 UNIT/ML CARTRIDGE SQ SCH ×2 (13:08→17:37)
[2016-11-11] MEDS: DIVALPROEX SODIUM 250 MG TABLET.DR PO SCH ×2 (14:29→21:01)
[2016-11-11 14:47] LABS: CALCIUM, SERUM 8.3 mg/dL (8.5-10.1); POTASSIUM 3.6 mmol/L (3.5-5.1)
[2016-11-11 16:16] VITALS: BP 118/66
[2016-11-11] MEDS: QUETIAPINE FUMARATE 25 MG TABLET PO SCH (17:35)
[2016-11-11] MEDS: APIXABAN 5 MG TABLET PO SCH (18:54)
[2016-11-11 20:00] VITALS: BP 120/66
[2016-11-11 20:11] VITALS: BP 120/66
[2016-11-11] MEDS ORDERED: DONEPEZIL 5 MG TABLET PO SCH (22:00)
[2016-11-11] MEDS ORDERED: INSULIN DETEMIR 100 UNIT/ML CARTRIDGE SQ SCH ×2 (22:00)
[2016-11-12 07:36] LABS: BASOPHILS % (AUTO) 0.5 % (0.0-2.0); DIFF TOTAL % 100 %; EOSINOPHILS # (AUTO) 0.1 /CMM (0.0-0.7); HEMATOCRIT 41 % (39-51); LYMPHOCYTES # (AUTO) 1.3 /CMM (0.8-4.8); LYMPHOCYTES % (AUTO) 18.1 % (20.0-44.0); MEAN CORPUSCULAR HEMOGLOBIN 31 PG (26.0-33.0); MEAN CORPUSCULAR HGB CONC 34 g/dl (31.0-36.0); MEAN CORPUSCULAR VOLUME 92 fL (80-96); MONOCYTES # (AUTO) 0.6 /CMM (0.1-1.30); NEUTROPHILS % (AUTO) 70.4 % (43.0-81.0); PLATELET COUNT (AUTO) 197 /CMM (150-450); RED BLOOD CELL COUNT(AUTO) 4.48 MIL/uL (4.5-6.0); WHITE BLOOD COUNT (AUTO) 7.1 K/uL (4.3-11.0)
[2016-11-12] MEDS: BLOOD SUGAR DIAGNOSTIC 1 EACH STRIP VI SCH ×2 (07:55→12:19)
[2016-11-12] MEDS: ASPIRIN 81 MG TAB.CHEW PO SCH (07:56)
[2016-11-12] MEDS: ATORVASTATIN 40 MG TABLET PO SCH (07:56)
[2016-11-12] MEDS: DIVALPROEX SODIUM 250 MG TABLET.DR PO SCH (07:56)
[2016-11-12] MEDS: QUETIAPINE FUMARATE 25 MG TABLET PO SCH ×2 (07:57→12:37)
[2016-11-12] MEDS: MEMANTINE HCL 5 MG TABLET PO SCH (07:57)
[2016-11-12] MEDS: PANTOPRAZOLE 40 MG TABLET.DR PO SCH (07:57)
[2016-11-12] MEDS: MONTELUKAST SODIUM (10MG) 10 MG TABLET PO SCH (07:57)
[2016-11-12] MEDS: APIXABAN 5 MG TABLET PO SCH (07:59)
[2016-11-12] MEDS: INSULIN DETEMIR 100 UNIT/ML CARTRIDGE SQ SCH (08:00)
[2016-11-12] MEDS: INSULIN REGULAR, HUMAN 100 UNIT/ML 3 ML VIAL SQ PRN ×2 (08:07→12:22)
[2016-11-12 08:25] LABS: ALBUMIN 2.6 g/dL (3.4-5.0); BILIRUBIN,TOTAL 0.3 mg/dL (0.2-1.0); CALCIUM, SERUM 8.4 mg/dL (8.5-10.1); CREATININE 0.7 mg/dL (0.6-1.3); POTASSIUM 3.3 mmol/L (3.5-5.1); TOTAL PROTEIN, SERUM 5.9 g/dL (6.4-8.2)
[2016-11-12] MEDS ORDERED: IV SET PRIMARY PUMP SET 1 EA INFUS.SET MC ONE (10:03)
[2016-11-12] MEDS: Magnesium 1GM/D5W 100ML PREMIX 100 ML IV SCH ×2 (10:06→11:12)
[2016-11-12] MEDS ORDERED: QUET25TA PO (10:16)
[2016-11-12] MEDS ORDERED: INSU100I19 SQ (10:16)
[2016-11-12] MEDS ORDERED: POTASSIUM CHLORIDE 20 MEQ TAB.PRT.SR PO SCH (11:00)
== END 2016-11-12 15:11 | DRG 637 ==
LOC: ER 00:13 → MED 00:16
PROVIDERS: ADMIT Internal Medicine; ATTEND Internal Medicine
DX: E11.65 Type 2 diabetes mellitus with hyperglycemia (principal); G93.40 Encephalopathy, unspecified; E78.5 Hyperlipidemia, unspecified; F02.80 Dementia in other diseases classified elsewhere, unspecified severity, without behavioral disturbance, psychotic disturbance, mood disturbance, and anxiety; G30.9 Alzheimer's disease, unspecified; F29 Unspecified psychosis not due to a substance or known physiological condition; I25.10 Atherosclerotic heart disease of native coronary artery without angina pectoris; L98.9 Disorder of the skin and subcutaneous tissue, unspecified; I11.0 Hypertensive heart disease with heart failure; F10.21 Alcohol dependence, in remission; I50.9 Heart failure, unspecified; L53.8 Other specified erythematous conditions; S41.132A Puncture wound without foreign body of left upper arm, initial encounter; S41.131A Puncture wound without foreign body of right upper arm, initial encounter; Y33.XXXA Other specified events, undetermined intent, initial encounter; Y93.9 Activity, unspecified; Y92.89 Other specified places as the place of occurrence of the external cause; Y99.9 Unspecified external cause status; S81.802A Unspecified open wound, left lower leg, initial encounter; S81.801A Unspecified open wound, right lower leg, initial encounter
CPT/HCPCS: 36415; 71010-TC; 80048-TC; 80053-TC; 80061-TC; 82962-TC; 83735-TC; 84100-TC; 85025-TC; 93307-TC; A4606; J1630; J1631; J1815; J3475; J7030; J7040; J7050; Z7610

== ENCOUNTER 2016-11-12 16:24 | Inpatient (IN) | payer MEDICARE, OTHER ==
[~2016-11-12] VITALS: Ht 167.6 cm; Wt 88.5 kg
[~2016-11-12 16:24] MED LIST changes: +INSU100I19 SQ; +QUET25TA PO
[2016-11-12] MEDS ORDERED: MAGNESIUM HYDROXIDE 30 ML UDC PO PRN (18:30)
[2016-11-12] MEDS ORDERED: MAG HYDROX/AL HYDROX/SIMETH 30 ML UDC PO PRN ×2 (18:30→20:00)
[2016-11-12] MEDS ORDERED: LORAZEPAM 0.5 MG TABLET PO PRN (18:30)
[2016-11-12] MEDS ORDERED: ACETAMINOPHEN 325 MG TABLET PO PRN (18:30)
[2016-11-12 18:44] VITALS: BP 118/75
[2016-11-12 19:00] VITALS: BP 153/86
[2016-11-12] MEDS ORDERED: DEXTROSE 50%-WATER 50 ML DISP.SYRIN IV PRN (20:00)
[2016-11-12] MEDS: BLOOD SUGAR DIAGNOSTIC 1 EACH STRIP IN SCH (21:59)
[2016-11-12 22:00] VITALS: BP 153/86
[2016-11-12] MEDS ORDERED: TEMAZEPAM 7.5 MG CAPSULE ONE (22:01)
[2016-11-12] MEDS ORDERED: DONEPEZIL 5 MG TABLET ONE (22:01)
[2016-11-12] MEDS: *INSULIN REGULAR(HUMULIN R)HUM 100 UNIT/ML VIAL SQ PRN (22:06)
[2016-11-12] MEDS: DONEPEZIL 5 MG TABLET PO SCH (22:07)
[2016-11-12] MEDS: TEMAZEPAM 7.5 MG CAPSULE PO PRN (22:11)
[2016-11-12] MEDS ORDERED: POTASSIUM CHLORIDE 20 MEQ TAB.PRT.SR PO ONE (23:00)
[2016-11-12] MEDS: MAGNESIUM OXIDE 400 MG TABLET PO SCH (23:00)
[2016-11-13] MEDS ORDERED: MAGNESIUM OXIDE 400 MG TABLET ONE (01:26)
[2016-11-13] MEDS ORDERED: POTASSIUM CHLORIDE 20 MEQ TAB.PRT.SR PO ONE (01:26)
[2016-11-13] MEDS ORDERED: diphenhydrAMINE HCL 50 MG/ML VIAL IM ONE (05:00)
[2016-11-13] MEDS ORDERED: HALOPERIDOL DECANOATE IM 100 MG/ML AMPUL IM ONE (05:00)
[2016-11-13] MEDS ORDERED: diphenhydrAMINE HCL 50 MG/ML VIAL ONE (05:04)
[2016-11-13] MEDS ORDERED: HALOPERIDOL LACTATE INJ 5 MG/ML VIAL ONE (05:05)
[2016-11-13] MEDS ORDERED: HALOPERIDOL LACTATE INJ 5 MG/ML VIAL IM ONE (05:30)
[2016-11-13] MEDS: BLOOD SUGAR DIAGNOSTIC 1 EACH STRIP IN SCH ×4 (06:42→21:41)
[2016-11-13] MEDS: INSULIN REGULAR, HUMAN 100 UNIT/ML 3 ML VIAL SQ PRN ×3 (06:44→17:13)
[2016-11-13 08:00] VITALS: BP 150/88
[2016-11-13 08:24] LABS: BASOPHILS % (AUTO) 0.3 % (0.0-2.0); DIFF TOTAL % 100 %; EOSINOPHILS # (AUTO) 0.1 /CMM (0.0-0.7); HEMATOCRIT 43 % (39-51); HEMOGLOBIN 14.4 g/dL (13.5-17.5); LYMPHOCYTES # (AUTO) 0.9 /CMM (0.8-4.8); LYMPHOCYTES % (AUTO) 12.4 % (20.0-44.0); MEAN CORPUSCULAR HEMOGLOBIN 31 PG (26.0-33.0); MEAN CORPUSCULAR HGB CONC 34 g/dl (31.0-36.0); MEAN CORPUSCULAR VOLUME 92 fL (80-96); MONOCYTES # (AUTO) 0.6 /CMM (0.1-1.30); MONOCYTES % (AUTO) 7.8 % (2.0-12.0); NEUTROPHILS # (AUTO) 5.7 /CMM (1.8-8.9); NEUTROPHILS % (AUTO) 78.5 % (43.0-81.0); PLATELET COUNT (AUTO) 191 /CMM (150-450); RED BLOOD CELL COUNT(AUTO) 4.61 MIL/uL (4.5-6.0); WHITE BLOOD COUNT (AUTO) 7.3 K/uL (4.3-11.0)
[2016-11-13 08:29] LABS: ALBUMIN 3.1 g/dL (3.4-5.0); BILIRUBIN,TOTAL 0.3 mg/dL (0.2-1.0); CALCIUM, SERUM 8.8 mg/dL (8.5-10.1); PHOSPHORUS 3.7 mg/dL (2.5-4.9); POTASSIUM 3.7 mmol/L (3.5-5.1); TOTAL PROTEIN, SERUM 6.7 g/dL (6.4-8.2)
[2016-11-13] MEDS ORDERED: QUETIAPINE FUMARATE 25 MG TABLET PO SCH (09:00)
[2016-11-13] MEDS ORDERED: NAMENDA 28 MG PO SCH (09:30)
[2016-11-13] MEDS: ASPIRIN 81 MG TAB.CHEW PO SCH (09:34)
[2016-11-13] MEDS: ATORVASTATIN 40 MG TABLET PO SCH (09:35)
[2016-11-13] MEDS: MONTELUKAST SODIUM (10MG) 10 MG TABLET PO SCH (09:35)
[2016-11-13] MEDS: APIXABAN 5 MG TABLET PO SCH ×2 (09:50→17:13)
[2016-11-13] MEDS: INSULIN DETEMIR 100 UNIT/ML CARTRIDGE SQ SCH ×2 (09:57→17:12)
[2016-11-13 16:00] VITALS: BP 176/97
[2016-11-13] MEDS: MEMANTINE HCL 5 MG TABLET PO SCH (17:07)
[2016-11-13] MEDS: QUETIAPINE FUMARATE 100 MG TABLET PO SCH (17:13)
[2016-11-13 18:00] VITALS: BP 131/81
[2016-11-13 19:55] VITALS: BP 148/86
[2016-11-13] MEDS: DIVALPROEX SODIUM 500 MG TABLET.DR PO SCH (21:40)
[2016-11-13] MEDS: Z GUARD REMEDY 2 OZ OINT TP SCH (21:40)
[2016-11-13] MEDS: TEMAZEPAM 7.5 MG CAPSULE PO PRN (21:41)
[2016-11-13] MEDS: DONEPEZIL 5 MG TABLET PO SCH (21:41)
[2016-11-13] MEDS: MAGNESIUM OXIDE 400 MG TABLET PO SCH (21:41)
[2016-11-13] MEDS: *INSULIN REGULAR(HUMULIN R)HUM 100 UNIT/ML VIAL SQ PRN (21:42)
[2016-11-14] MEDS: ACETAMINOPHEN 325 MG TABLET PO PRN (00:42)
[2016-11-14] MEDS: BLOOD SUGAR DIAGNOSTIC 1 EACH STRIP IN SCH ×4 (07:30→21:01)
[2016-11-14 08:00] VITALS: BP 146/69
[2016-11-14] MEDS: INSULIN DETEMIR 100 UNIT/ML CARTRIDGE SQ SCH ×2 (08:38→17:00)
[2016-11-14] MEDS: INSULIN REGULAR, HUMAN 100 UNIT/ML 3 ML VIAL SQ PRN ×3 (08:39→18:10)
[2016-11-14] MEDS: DIVALPROEX SODIUM 500 MG TABLET.DR PO SCH ×2 (09:40→21:00)
[2016-11-14] MEDS: MEMANTINE HCL 5 MG TABLET PO SCH ×2 (09:40→17:00)
[2016-11-14] MEDS: ATORVASTATIN 40 MG TABLET PO SCH (09:40)
[2016-11-14] MEDS: QUETIAPINE FUMARATE 100 MG TABLET PO SCH ×2 (09:40→17:00)
[2016-11-14] MEDS: ASPIRIN 81 MG TAB.CHEW PO SCH (09:40)
[2016-11-14] MEDS: MONTELUKAST SODIUM (10MG) 10 MG TABLET PO SCH (09:40)
[2016-11-14] MEDS: APIXABAN 5 MG TABLET PO SCH ×2 (09:42→18:16)
[2016-11-14] MEDS: Z GUARD REMEDY 2 OZ OINT TP SCH ×2 (09:49→21:01)
[2016-11-14 16:00] VITALS: BP 153/84
[2016-11-14] MEDS: DONEPEZIL 5 MG TABLET PO SCH (21:04)
[2016-11-14] MEDS: MAGNESIUM OXIDE 400 MG TABLET PO SCH (21:04)
[2016-11-14 21:07] VITALS: BP 101/62
[2016-11-15] MEDS: BLOOD SUGAR DIAGNOSTIC 1 EACH STRIP IN SCH ×5 (07:30→22:23)
[2016-11-15 08:00] VITALS: BP 137/69
[2016-11-15] MEDS: INSULIN DETEMIR 100 UNIT/ML CARTRIDGE SQ SCH ×2 (08:24→17:53)
[2016-11-15] MEDS: INSULIN REGULAR, HUMAN 100 UNIT/ML 3 ML VIAL SQ PRN ×3 (08:24→17:54)
[2016-11-15] MEDS: Z GUARD REMEDY 2 OZ OINT TP SCH ×2 (09:00→21:00)
[2016-11-15] MEDS: QUETIAPINE FUMARATE 100 MG TABLET PO SCH ×3 (10:03→21:21)
[2016-11-15] MEDS: MEMANTINE HCL 5 MG TABLET PO SCH ×2 (10:03→16:10)
[2016-11-15] MEDS: ATORVASTATIN 40 MG TABLET PO SCH (10:03)
[2016-11-15] MEDS: DIVALPROEX SODIUM 500 MG TABLET.DR PO SCH ×2 (10:03→21:21)
[2016-11-15] MEDS: MONTELUKAST SODIUM (10MG) 10 MG TABLET PO SCH (10:03)
[2016-11-15] MEDS: ASPIRIN 81 MG TAB.CHEW PO SCH (10:03)
[2016-11-15] MEDS: APIXABAN 5 MG TABLET PO SCH ×2 (10:09→16:11)
[2016-11-15 16:00] VITALS: BP 113/72
[2016-11-15 19:54] VITALS: BP 133/72
[2016-11-15] MEDS: TEMAZEPAM 7.5 MG CAPSULE PO PRN (21:21)
[2016-11-15] MEDS: MAGNESIUM OXIDE 400 MG TABLET PO SCH (21:21)
[2016-11-15] MEDS: DONEPEZIL 5 MG TABLET PO SCH (21:21)
[2016-11-15] MEDS: *INSULIN REGULAR(HUMULIN R)HUM 100 UNIT/ML VIAL SQ PRN (22:27)
[2016-11-16] MEDS: BLOOD SUGAR DIAGNOSTIC 1 EACH STRIP IN SCH ×4 (07:30→21:53)
[2016-11-16 08:00] VITALS: BP 138/76
[2016-11-16] MEDS: ATORVASTATIN 40 MG TABLET PO SCH (09:00)
[2016-11-16] MEDS: ASPIRIN 81 MG TAB.CHEW PO SCH (09:00)
[2016-11-16] MEDS: MONTELUKAST SODIUM (10MG) 10 MG TABLET PO SCH (09:00)
[2016-11-16] MEDS: APIXABAN 5 MG TABLET PO SCH ×2 (09:00→17:00)
[2016-11-16] MEDS: Z GUARD REMEDY 2 OZ OINT TP SCH ×2 (09:00→20:48)
[2016-11-16] MEDS ORDERED: INSULIN DETEMIR 100 UNIT/ML CARTRIDGE SQ SCH (09:00)
[2016-11-16] MEDS: QUETIAPINE FUMARATE 100 MG TABLET PO SCH ×3 (09:00→17:00)
[2016-11-16] MEDS: MEMANTINE HCL 5 MG TABLET PO SCH ×2 (09:00→17:50)
[2016-11-16] MEDS: ACETAMINOPHEN 325 MG TABLET PO PRN (13:42)
[2016-11-16 16:00] VITALS: BP 116/71
[2016-11-16] MEDS: DIVALPROEX SODIUM 500 MG TABLET.DR PO SCH (17:49)
[2016-11-16 20:00] VITALS: BP 114/64
[2016-11-16] MEDS: MAGNESIUM OXIDE 400 MG TABLET PO SCH (21:14)
[2016-11-16] MEDS: DONEPEZIL 5 MG TABLET PO SCH (21:14)
[2016-11-16] MEDS: INSULIN DETEMIR 100 UNIT/ML CARTRIDGE SQ SCH (21:16)
[2016-11-16] MEDS: *INSULIN REGULAR(HUMULIN R)HUM 100 UNIT/ML VIAL SQ PRN (21:20)
[2016-11-16] MEDS: TEMAZEPAM 7.5 MG CAPSULE PO PRN (22:47)
[2016-11-17 08:00] VITALS: BP 145/68
[2016-11-17] MEDS: BLOOD SUGAR DIAGNOSTIC 1 EACH STRIP IN SCH ×4 (08:37→21:18)
[2016-11-17] MEDS: ASPIRIN 81 MG TAB.CHEW PO SCH (09:10)
[2016-11-17] MEDS: MEMANTINE HCL 5 MG TABLET PO SCH ×2 (09:10→17:24)
[2016-11-17] MEDS: QUETIAPINE FUMARATE 100 MG TABLET PO SCH ×3 (09:10→17:23)
[2016-11-17] MEDS: DIVALPROEX SODIUM 500 MG TABLET.DR PO SCH ×3 (09:10→17:23)
[2016-11-17] MEDS: MONTELUKAST SODIUM (10MG) 10 MG TABLET PO SCH (09:10)
[2016-11-17] MEDS: ATORVASTATIN 40 MG TABLET PO SCH (09:10)
[2016-11-17] MEDS: Z GUARD REMEDY 2 OZ OINT TP SCH ×2 (09:14→20:18)
[2016-11-17] MEDS: INSULIN DETEMIR 100 UNIT/ML CARTRIDGE SQ SCH ×2 (09:14→20:58)
[2016-11-17] MEDS: INSULIN REGULAR, HUMAN 100 UNIT/ML 3 ML VIAL SQ PRN ×3 (09:18→17:37)
[2016-11-17] MEDS: APIXABAN 5 MG TABLET PO SCH ×2 (11:09→17:24)
[2016-11-17] MEDS ORDERED: VITAMINS A AND D 56.7 GM TUBE TP PRN (12:00)
[2016-11-17 16:02] VITALS: BP 116/74
[2016-11-17 20:00] VITALS: BP 117/66
[2016-11-17] MEDS: *INSULIN REGULAR(HUMULIN R)HUM 100 UNIT/ML VIAL SQ PRN (21:15)
[2016-11-17] MEDS: MAGNESIUM OXIDE 400 MG TABLET PO SCH (21:16)
[2016-11-17] MEDS: DONEPEZIL 5 MG TABLET PO SCH (21:16)
[2016-11-17] MEDS: TEMAZEPAM 7.5 MG CAPSULE PO PRN (22:34)
[2016-11-18 08:00] VITALS: BP 131/66
[2016-11-18] MEDS: BLOOD SUGAR DIAGNOSTIC 1 EACH STRIP IN SCH ×4 (08:45→21:06)
[2016-11-18] MEDS: Z GUARD REMEDY 2 OZ OINT TP SCH ×2 (08:46→21:06)
[2016-11-18] MEDS: MEMANTINE HCL 5 MG TABLET PO SCH ×2 (08:46→17:49)
[2016-11-18] MEDS: DIVALPROEX SODIUM 500 MG TABLET.DR PO SCH ×3 (08:46→17:50)
[2016-11-18] MEDS: ATORVASTATIN 40 MG TABLET PO SCH (08:46)
[2016-11-18] MEDS: MONTELUKAST SODIUM (10MG) 10 MG TABLET PO SCH (08:46)
[2016-11-18] MEDS: QUETIAPINE FUMARATE 100 MG TABLET PO SCH ×3 (08:46→17:49)
[2016-11-18] MEDS: ASPIRIN 81 MG TAB.CHEW PO SCH (08:46)
[2016-11-18] MEDS: APIXABAN 5 MG TABLET PO SCH ×2 (08:47→17:51)
[2016-11-18] MEDS: INSULIN DETEMIR 100 UNIT/ML CARTRIDGE SQ SCH ×2 (10:38→22:07)
[2016-11-18] MEDS: *INSULIN REGULAR(HUMULIN R)HUM 100 UNIT/ML VIAL SQ PRN ×2 (12:12→22:09)
[2016-11-18 16:08] VITALS: BP 119/79
[2016-11-18] MEDS: INSULIN REGULAR, HUMAN 100 UNIT/ML 3 ML VIAL SQ PRN (17:53)
[2016-11-18 20:00] VITALS: BP 125/74
[2016-11-18] MEDS: TEMAZEPAM 7.5 MG CAPSULE PO PRN (21:03)
[2016-11-18] MEDS: DONEPEZIL 5 MG TABLET PO SCH (21:04)
[2016-11-18] MEDS: ACETAMINOPHEN 325 MG TABLET PO PRN (21:04)
[2016-11-18] MEDS: MAGNESIUM OXIDE 400 MG TABLET PO SCH (21:06)
[2016-11-19 08:01] VITALS: BP 144/78
[2016-11-19] MEDS: BLOOD SUGAR DIAGNOSTIC 1 EACH STRIP IN SCH ×4 (08:12→21:16)
[2016-11-19] MEDS: INSULIN DETEMIR 100 UNIT/ML CARTRIDGE SQ SCH ×2 (08:31→21:11)
[2016-11-19] MEDS: ASPIRIN 81 MG TAB.CHEW PO SCH (08:33)
[2016-11-19] MEDS: QUETIAPINE FUMARATE 100 MG TABLET PO SCH ×3 (08:33→21:05)
[2016-11-19] MEDS: ATORVASTATIN 40 MG TABLET PO SCH (08:33)
[2016-11-19] MEDS: MONTELUKAST SODIUM (10MG) 10 MG TABLET PO SCH (08:33)
[2016-11-19] MEDS: MEMANTINE HCL 5 MG TABLET PO SCH ×2 (08:33→16:42)
[2016-11-19] MEDS: DIVALPROEX SODIUM 500 MG TABLET.DR PO SCH ×2 (08:33→12:32)
[2016-11-19] MEDS: APIXABAN 5 MG TABLET PO SCH ×2 (08:35→16:44)
[2016-11-19] MEDS: Z GUARD REMEDY 2 OZ OINT TP SCH ×2 (08:35→21:19)
[2016-11-19] MEDS: INSULIN REGULAR, HUMAN 100 UNIT/ML 3 ML VIAL SQ PRN (12:36)
[2016-11-19 15:49] VITALS: BP 128/73
[2016-11-19 19:49] VITALS: BP 154/77
[2016-11-19] MEDS: MAGNESIUM OXIDE 400 MG TABLET PO SCH (21:06)
[2016-11-19] MEDS: DIVALPROEX SODIUM 250 MG TABLET.DR PO SCH (21:06)
[2016-11-19] MEDS: DONEPEZIL 5 MG TABLET PO SCH (21:07)
[2016-11-19] MEDS: *INSULIN REGULAR(HUMULIN R)HUM 100 UNIT/ML VIAL SQ PRN (21:12)
[2016-11-19] MEDS: TEMAZEPAM 7.5 MG CAPSULE PO PRN (23:22)
[2016-11-19] MEDS: ACETAMINOPHEN 325 MG TABLET PO PRN (23:23)
[2016-11-20] MEDS: BLOOD SUGAR DIAGNOSTIC 1 EACH STRIP IN SCH ×4 (07:42→21:14)
[2016-11-20] MEDS: MEMANTINE HCL 5 MG TABLET PO SCH ×2 (08:42→16:44)
[2016-11-20] MEDS: QUETIAPINE FUMARATE 100 MG TABLET PO SCH ×3 (08:42→21:10)
[2016-11-20] MEDS: ATORVASTATIN 40 MG TABLET PO SCH (08:42)
[2016-11-20] MEDS: DIVALPROEX SODIUM 500 MG TABLET.DR PO SCH ×2 (08:42→14:18)
[2016-11-20] MEDS: ASPIRIN 81 MG TAB.CHEW PO SCH (08:42)
[2016-11-20] MEDS: MONTELUKAST SODIUM (10MG) 10 MG TABLET PO SCH (08:42)
[2016-11-20] MEDS: Z GUARD REMEDY 2 OZ OINT TP SCH ×2 (08:43→21:14)
[2016-11-20] MEDS: APIXABAN 5 MG TABLET PO SCH ×2 (08:43→16:45)
[2016-11-20] MEDS: INSULIN DETEMIR 100 UNIT/ML CARTRIDGE SQ SCH ×2 (08:49→21:15)
[2016-11-20] MEDS: INSULIN REGULAR, HUMAN 100 UNIT/ML 3 ML VIAL SQ PRN (13:37)
[2016-11-20 16:00] VITALS: BP 132/78
[2016-11-20 20:00] VITALS: BP 134/96
[2016-11-20] MEDS: DONEPEZIL 5 MG TABLET PO SCH (21:09)
[2016-11-20] MEDS: DIVALPROEX SODIUM 250 MG TABLET.DR PO SCH (21:09)
[2016-11-20] MEDS: *INSULIN REGULAR(HUMULIN R)HUM 100 UNIT/ML VIAL SQ PRN (21:18)
[2016-11-20] MEDS: MAGNESIUM OXIDE 400 MG TABLET PO SCH (22:00)
[2016-11-21 08:32] VITALS: BP 158/80
[2016-11-21] MEDS: DIVALPROEX SODIUM 500 MG TABLET.DR PO SCH ×3 (08:59→13:13)
[2016-11-21] MEDS: ASPIRIN 81 MG TAB.CHEW PO SCH (08:59)
[2016-11-21] MEDS: APIXABAN 5 MG TABLET PO SCH (08:59)
[2016-11-21] MEDS: MONTELUKAST SODIUM (10MG) 10 MG TABLET PO SCH (08:59)
[2016-11-21] MEDS: ATORVASTATIN 40 MG TABLET PO SCH (08:59)
[2016-11-21] MEDS: QUETIAPINE FUMARATE 100 MG TABLET PO SCH ×3 (08:59→13:13)
[2016-11-21] MEDS: MEMANTINE HCL 5 MG TABLET PO SCH (08:59)
[2016-11-21] MEDS: INSULIN DETEMIR 100 UNIT/ML CARTRIDGE SQ SCH (09:08)
[2016-11-21] MEDS: INSULIN REGULAR, HUMAN 100 UNIT/ML 3 ML VIAL SQ PRN ×2 (09:10→13:14)
[2016-11-21] MEDS: Z GUARD REMEDY 2 OZ OINT TP SCH (09:10)
[2016-11-21] MEDS: BLOOD SUGAR DIAGNOSTIC 1 EACH STRIP IN SCH ×2 (09:10→13:13)
== END 2016-11-21 16:00 | DRG 885 ==
LOC: GPSOV 16:24 → GPS 11-13 13:27
PROVIDERS: ADMIT Psychiatry & Neurology Psychiatry; ATTEND Internal Medicine
DX: F29 Unspecified psychosis not due to a substance or known physiological condition (principal); I11.0 Hypertensive heart disease with heart failure; E11.65 Type 2 diabetes mellitus with hyperglycemia; E44.0 Moderate protein-calorie malnutrition; I50.20 Unspecified systolic (congestive) heart failure; Z73.6 Limitation of activities due to disability; F03.90 Unspecified dementia, unspecified severity, without behavioral disturbance, psychotic disturbance, mood disturbance, and anxiety; E11.649 Type 2 diabetes mellitus with hypoglycemia without coma; I25.10 Atherosclerotic heart disease of native coronary artery without angina pectoris; Z95.1 Presence of aortocoronary bypass graft; E78.5 Hyperlipidemia, unspecified; E66.9 Obesity, unspecified; E83.42 Hypomagnesemia; E87.6 Hypokalemia
CPT/HCPCS: 36415; 80053-TC; 80061-TC; 80164-TC; 82962-TC; 83735-TC; 84100-TC; 85025-TC; 87081-TC; J1200; J1630; J1631; J1815